=== PATIENT | male | born 1985 | race Caucasian/White ===

== ENCOUNTER 2018-08-28 00:46 | Observation (INO) ==
[2018-08-28] MEDS ORDERED: Isovue-370 500 ML BOTTLE IVP ONE (01:10)
[2018-08-28] MEDS ORDERED: 0.9 % Sodium Chloride 1,000 ML IVC ONE (01:10)
--- NOTE | 2018-08-28 01:15 | Emergency Department Note ---
Disposition Clinical Impression: Tonsillitis, Lymphadenitis, acute, Trismus Cellulitis Qualifiers: Site of cellulitis: neck Qualified Code(s): L03.221 - Cellulitis of neck Disposition: Admitted As Inpatient Condition: Good Referrals: NONE,PCP [Primary Care Provider] - Forms: ED Satisfaction Letter Time of Disposition: 05:06 Dental HPI - General Chief complaint: ED Dental/Oral Stated complaint: infection/abscessed tooth Time Seen by Provider: 08/28/18 00:57 Source: patient Mode of arrival: private vehicle Limitations: no limitations Nursing Notes Reviewed: Yes Vital Signs Reviewed: Yes - History of Present Illness HPI Narrative: 32-year-old male presents emergency department for evaluation of worsening dental infection. Patient states chronic fractures of teeth to the lower right molars, hand pain and then on Friday and Friday and when he woke up on Friday he had a large edematous lymph node under the right mandible, he was seen and was given Pen-Vee K for which he has had 3 doses of. He states today he thinks the lymph node has gotten larger but he also has new redness going down his anterior neck into his chest, he states he generally just does not feel any better. He denies having any fevers, states he went to work today. He st ates he is unable to open his mouth fully due to the pain, he does have a bad taste in his mouth. No choking, drooling. Pt Subjective Complaint: dental pain, facial pain, facial swelling, mouth pain, gingival pain/swelling Onset (ago): day(s) Duration: worsening Improves with: NSAIDs, other (KB mouth closed) Worsens with: chewing, swallowing Context: history of dental caries Associated symptoms: Reports: gum swelling, pain with swallowing Treatment prior to arrival: other - Related Data Home Medications Medication Instructions Recorded Confirmed Omeprazole [PriLOSEC] 20 mg PO DAILY 08/28/18 08/28/18 Allergies Allergy/AdvReac Type Severity Reaction Status Date / Time No Known Allergies Allergy Verified 11/22/14 03:41 All systems ED: reviewed and negative except as stated. Review of Systems: As Per HPI Past Medical History - Past Medical History Attestation: Yes The following information was validated with the patient. Source: patient Medical history: Reports: no medical history Surgical history: Reports: no surgical history Psychiatric history: Reports: no psych history - Social History Smoking Status: Current every day smoker Smokeless Tobacco Status: No Alcohol use: Reports: rarely Drug use: Reports: none Physical Exam - General Limitations: no limitations General appearance: alert, in no apparent distress - Head Head exam: atraumatic, normocephalic, normal inspection - Eye Eye exam: Present: normal appearance - Expanded ENT Exam Mouth exam: Present: trismus, tongue normal. Absent: drooling, lip swelling, tongue elevation, tounge swelling, laceration Teeth exam: Present: fractured tooth #, gingival swelling 1 - Fractured, Other (Noted with what appears to be purulent drainage) Throat exam: Present: normal inspection. Absent: tonsillar erythema, tonsillomegaly, tonsillar exudate, R peritonsillar mass, L peritonsillar mass - Neck Neck exam: Present: normal inspection, full ROM, trachea midline, other (right mandibular gland vs lymph, tender to touch-erythema to anterior neck, blanches wiht touch) - Chest Chest inspection: Present: normal inspection, symmetric chest wall rise, other (erythema to inferior center chest) - Neurological Exam Neurological exam: Present: alert, oriented X3 - Psychiatric Psychiatric exam: Present: normal affect, normal mood - Skin Skin exam: Present: warm, dry, intact, normal color Course Course Narrative: Well-developed male in no acute distress. Respirations are easy and even, voice is steady and strong. Physical examination reveals firm swelling to the right side of the mandibular area, question lymph node versus mandibular gland, tender with touch. There is erythema to the anterior neck and inferior chest, blanches with touch, warm, does appear to extend from the edema to the right side of the neck. Positive trismus Right jaw noted with 3 fractured teeth, there is white drainage, buccal membrane edema, and gingival edema. Oropharynx within normal limits, no evidence of [place]. No other lymphadenopathy. - Reevaluation(s) Reevaluation #1: Labs returned relatively unremarkable, white count elevated slightly at 12.8, initial metabolic panel reveals hypokalemia and hypocalcemia, this is a normal healthy 32-year-old male's labs were repeated which returned normal. CT of the neck reveals bilateral enlarged tonsils without abscess which is consistent with tonsillitis as well as a right submental/anterior triangle lymphadenopathy, noted with cellulitis to the anterior neck. Per CT there is no evidence of a dental abscess I do feel patient would benefit from admission to the hospital for IV antibiotics as he is had 3 doses of penicillin, new onset cellulitis as well as trismus. Patient is reluctantly agreeable to this plan of care. 0320-I did speak with Dr. Toscano with ENT, she is agreeable to consult and see patient in the morning with hospitalist admission. She does state that should patient at any point developed a dental abscess he would need to be seen by an oral surgeon. Patient without any evidence of a dental abscess, he does have fractured teeth and there is edema but there is no abscess. We have paged for the hospitalist at this time. Patient would rather stay here to receive IV antibiotics and given patient's presentation, labs, CT I feel this is reasonable as patient is very stable and without evidence of need for an oral surgeon impatiently at this time. Attending, Dr. Lau has had one on face time with patient is agreeable to plan of care. Time: 03:40 Reevaluation #2: Spoke with hospitalist Dr. Gonsales, agreeable for admission to the inpatient unit. Patient continues to be agreeable. We will transition to inpatient unit at this time. Time: 05:06 Vital Signs Temperature 97.9 F 08/28/18 00:47 Pulse Rate 94 08/28/18 00:47 Respiratory Rate 18 08/28/18 00:47 Blood Pressure 159/105 08/28/18 00:47 O2 Sat by Pulse Oximetry 99 08/28/18 00:47 Temperature 97.9 F 08/28/18 00:47 Pulse Rate 76 08/28/18 04:31 Respiratory Rate 15 08/28/18 04:31 Blood Pressure 147/97 08/28/18 04:31 O2 Sat by Pulse Oximetry 97 08/28/18 04:31 Oxygen Delivery Oxygen Delivery Room Air Dental/Oral - Lab Data Result diagrams: 08/28/18 01:30 08/28/18 02:19 Lab Results 08/28/18 08/28/18 08/28/18 Range/Units 01:30 01:30 02:19 WBC 12.8 H (4.3-11.1) K/mcL RBC 4.59 (4.19-5.50) M/mcL Hgb 14.4 (12.9-16.9) g/dL Hct 41.8 (37.5-50.1) % MCV 91.1 (83.0-100.0) fL MCH 31.4 (28.0-33.3) pg MCHC 34.4 (31.6-35.5) g/dL RDW 12.5 (11.5-14.5) % Plt Count 215 (140-400) K/mcL MPV 9.5 (9.4-12.4) fL Immature Gran % 0.4 (0-4) % Seg Neutrophils % 69.2 % Lymphocytes % 20.3 % Monocytes % 8.5 % Eosinophils % 1.1 % Basophils % 0.5 % Neutrophils # 8.9 (1.6-8.9) K/mcL Lymphocytes # 2.6 (0.6-4.6) K/mcL Monocytes # 1.1 (0.0-1.3) K/mcL Eosinophils # 0.1 (0.0-0.6) K/mcL Basophils # 0.1 (0.0-0.2) K/mcL Sodium 140 (136-145) mEq/L Potassium 2.6 L 3.9 D (3.5-5.1) mEq/L Chloride 115 H (98-107) mEq/L Carbon Dioxide 20 L (23-29) mEq/L BUN 5 L (6-20) mg/dL Creatinine 0.64 L (0.70-1.30) mg/dL Est GFR ( Amer) > 60 (> 60) Est GFR (Non-Af Amer) > 60 (> 60) BUN/Creatinine Ratio 8 (6-26) Glucose 70 (70-105) mg/dL Calculated Osmolality 286 (280-300) Calcium 6.4 L 8.6 (8.6-10.3) mg/dL
[2018-08-28 01:46] LABS: Basophils # 0.1 K/mcL (0.0-0.2); Basophils % 0.5 %; Eosinophils # 0.1 K/mcL (0.0-0.6); Eosinophils % 1.1 %; Hematocrit 41.8 % (37.5-50.1); Hemoglobin 14.4 g/dL (12.9-16.9); Immature Granulocytes % 0.4 % (0-4); Lymphocytes # 2.6 K/mcL (0.6-4.6); Lymphocytes % 20.3 %; Mean Corpuscular HGB Conc 34.4 g/dL (31.6-35.5); Mean Corpuscular Hemoglobin 31.4 pg (28.0-33.3); Mean Corpuscular Volume 91.1 fL (83.0-100.0); Mean Platelet Volume 9.5 fL (9.4-12.4); Monocytes # 1.1 K/mcL (0.0-1.3); Monocytes % 8.5 %; Neutrophils # 8.9 K/mcL (1.6-8.9); Platelet Count 215 K/mcL (140-400); Red Blood Count 4.59 M/mcL (4.19-5.50); Red Cell Distribution Width 12.5 % (11.5-14.5); Segmented Neutrophils % 69.2 %; White Blood Count 12.8 K/mcL (4.3-11.1)
[2018-08-28 02:01] LABS: BUN/Creatinine Ratio 8 (6-26); Blood Urea Nitrogen 5 mg/dL (6-20); Calcium 6.4 mg/dL (8.6-10.3); Carbon Dioxide 20 mEq/L (23-29); Chloride 115 mEq/L (98-107); Glucose 70 mg/dL (70-105); Osmolality,Calculated 286 (280-300); Potassium 2.6 mEq/L (3.5-5.1); Sodium 140 mEq/L (136-145); eGFR For African Americans > 60 (> 60); eGFR For Non-African Americans > 60 (> 60)
[2018-08-28 02:52] LABS: Calcium 8.6 mg/dL (8.6-10.3); Potassium 3.9 mEq/L (3.5-5.1)
[2018-08-28] MEDS ORDERED: Clindamycin 600 MG/50 ML 600 MG/50 ML IV.SOLN IVPB ONE (03:30)
--- NOTE | 2018-08-28 03:35 | Emergency Department Note ---
Disposition Clinical Impression: Tonsillitis, Lymphadenitis, acute, Trismus Cellulitis Qualifiers: Site of cellulitis: neck Qualified Code(s): L03.221 - Cellulitis of neck Disposition: Admitted As Inpatient Condition: Good Time of Disposition: 05:06 General Adult HPI - General Chief complaint: ED Dental/Oral Stated complaint: infection/abscessed tooth Time Seen by Provider: 08/28/18 00:57 Source: patient Mode of arrival: private vehicle Limitations: no limitations Nursing Notes Reviewed: Yes Vital Signs Reviewed: Yes - History of Present Illness Pain Scale: 10 - Related Data Home Medications Medication Instructions Recorded Confirmed Omeprazole [PriLOSEC] 20 mg PO DAILY 08/28/18 08/28/18 Allergies Allergy/AdvReac Type Severity Reaction Status Date / Time No Known Allergies Allergy Verified 11/22/14 03:41 Past Medical History - Past Medical History Medical history: Reports: no medical history Surgical history: Reports: no surgical history Psychiatric history: Reports: no psych history - Social History Smoking Status: Current every day smoker Smokeless Tobacco Status: No Alcohol use: Reports: rarely Drug use: Reports: none Physical Exam - General Limitations: no limitations General appearance: alert, in no apparent distress Course Vital Signs Temperature 97.9 F 08/28/18 00:47 Pulse Rate 94 08/28/18 00:47 Respiratory Rate 18 08/28/18 00:47 Blood Pressure 159/105 08/28/18 00:47 O2 Sat by Pulse Oximetry 99 08/28/18 00:47 Temperature 97.9 F 08/28/18 00:47 Pulse Rate 76 08/28/18 04:31 Respiratory Rate 15 08/28/18 04:31 Blood Pressure 147/97 08/28/18 04:31 O2 Sat by Pulse Oximetry 97 08/28/18 04:31 Oxygen Delivery Oxygen Delivery Room Air Medical Decision Making - Lab Data Lab results reviewed: Yes I reviewed the patient's lab results. Result diagrams: 08/28/18 01:30 08/28/18 02:19 Lab Results 08/28/18 08/28/18 08/28/18 Range/Units 01:30 01:30 02:19 WBC 12.8 H (4.3-11.1) K/mcL RBC 4.59 (4.19-5.50) M/mcL Hgb 14.4 (12.9-16.9) g/dL Hct 41.8 (37.5-50.1) % MCV 91.1 (83.0-100.0) fL MCH 31.4 (28.0-33.3) pg MCHC 34.4 (31.6-35.5) g/dL RDW 12.5 (11.5-14.5) % Plt Count 215 (140-400) K/mcL MPV 9.5 (9.4-12.4) fL Immature Gran % 0.4 (0-4) % Seg Neutrophils % 69.2 % Lymphocytes % 20.3 % Monocytes % 8.5 % Eosinophils % 1.1 % Basophils % 0.5 % Neutrophils # 8.9 (1.6-8.9) K/mcL Lymphocytes # 2.6 (0.6-4.6) K/mcL Monocytes # 1.1 (0.0-1.3) K/mcL Eosinophils # 0.1 (0.0-0.6) K/mcL Basophils # 0.1 (0.0-0.2) K/mcL Sodium 140 (136-145) mEq/L Potassium 2.6 L 3.9 D (3.5-5.1) mEq/L Chloride 115 H (98-107) mEq/L Carbon Dioxide 20 L (23-29) mEq/L BUN 5 L (6-20) mg/dL Creatinine 0.64 L (0.70-1.30) mg/dL Est GFR ( Amer) > 60 (> 60) Est GFR (Non-Af Amer) > 60 (> 60) BUN/Creatinine Ratio 8 (6-26) Glucose 70 (70-105) mg/dL Calculated Osmolality 286 (280-300) Calcium 6.4 L 8.6 (8.6-10.3) mg/dL - Radiology Data Radiology results reviewed: Yes I reviewed the patient's radiology results. Soft Tissue Neck CT 08/28/18 01:10 IMPRESSION: 1. Bilaterally enlarged heterogeneous lingual tonsils with soft tissue affect and blunting of the vallecula without organized abscess formation. Findings are compatible with tonsillitis. 2. Right submental and anterior triangle lymphadenopathy. 3. Soft tissue edema ventral to the hyoid bone and the mandible. D/ / Arelis Dobson MD / Arelis Dobson MD Interpreting Provider: Arelis Dobson MD Critical Care Time Critical Care Time: No Attestation Statement - Attestation Attestation: I, Kaushal Lau MD, personally evaluated this patient and discussed their management with the midlevel provicer, PAC/MARINE UNDERWRITER. I reviewed the midlevel provider's note and agree with the documented findings, medical decision making, and plan of care. 32-year-old male presented to the emergency department with a complaint of right jaw pain and swelling for the past several days. Worse over the past 2 days. He was seen somewhere and started on Pen-Vee K for a dental infection. Today the pain and swelling became worse and he developed redness standing across the anterior throat area and down onto the upper chest wall. The area is warm to touch. He has not had any definite fever. He also has developed trismus and difficulty opening his mouth. No difficulty swallowing or breathing. On examination patient is a well-developed well-nourished male in no acute distress. He is alert and oriented 3. There is no cyanosis or diaphoresis. There is firm and indurated swelling over the right mandible and submandibular region with no palpable fluctuance. Patient has trismus and is only able to open his teeth about 1.5 cm. There is erythema and warmth to touch of the skin over the anterior and right side of the neck and throat area extending down onto the mid upper anterior chest wall. Breath sounds are clear and equal bilaterally. Heart regular rate and rhythm. Labs reviewed. Mild leukocytosis. CT shows soft tissue swelling and lymphadenopathy with no abscess. Also consistent with tonsillitis. The hospitalist, Dr. Gonsales, was consulted and accepted admission of the patient.
[2018-08-28] MEDS ORDERED: Ketorolac 15 MG/ML VIAL IVP ONE (04:17)
[2018-08-28] MEDS ORDERED: Acetaminophen 325 MG TABLET PO PRN (05:00)
[2018-08-28] MEDS ORDERED: Ketorolac 30 MG/ML VIAL IVP PRN (05:00)
[2018-08-28] MEDS ORDERED: Naloxone 0.4 MG/ML INJ IVP PRN (05:00)
--- NOTE | 2018-08-28 05:32 | Internal Med History&Physical ---
Date of Encounter: 08/28/18 Time of Encounter: 05:22 Internal Medicine - H&P: HPI Chief complaint: neck pain Admitted From: Home History of present illness: Steven Lorenzo is a 32-year-old man presents with a complaint of right submandibular pain. He says that 4 days ago he developed pain in his right inner ear which radiated down his jaw and into his right upper neck area. He has progressively developed swelling since then with difficulty and pain with swallowing. He admits to having poor dentition with fractured teeth on the same right side. He went to an urgent care center where he was given oral penicillin V but has noted minimal response with this and today woke up with redness going down his neck and more expansion of the swelling. The ER he was found to have a mild leukocytosis of 12 but was afebrile. Physical exam was notable for trismus. CT scan done showed: 1. Bilaterally enlarged heterogeneous lingual tonsils with soft tissue affect and blunting of the vallecula without organized abscess formation. Findings are compatible with tonsillitis. 2. Right submental and anterior triangle lymphadenopathy. 3. Soft tissue edema ventral to the hyoid bone and the mandible. He was given 1 dose of clindamycin and ENT was consulted for evaluation given the progression of his infectious process. He is admitted for further care. Vitals: Reviewed General: Well-developed white man lying comfortably in bed in no acute distress. Skin: Warm and dry. HEENT: Moist mucous membranes. No conjunctivae pallor. Right gingival edema noted with fractured premolars and caries present. Unable to open mouth fully. Neck: Large palpable right submandibular and preauricular LN presents, erythema overlying the right lower neck. Chest: Normal thoracic expansion. Normal breath sounds. Clear to auscultation. Heart: Normal S1 & S2; rhythmic. No rubs or murmurs. Abdomen: Non-distended, soft and non-tender to palpation. No peritoneal reaction. Extremities: No clubbing, cyanosis or edema. No calf tenderness. Normal distal pulses. Neurological: Awake, alert and oriented to person, place and time. No focal deficits. Psych: Affect appropriate. Assessment/Plan 1. Acute tonsillitis: Complicated with surrounding soft tissue swelling and notable edema concerning for progression to an abscess formation and extension into the deeper tissues as noted clinically and radiologically. Inadequate oral therapy given as an outpatient. Will draw a serum lactate and peripheral blood cultures. Start ampicillin/sulbactam 3grs q6hrs. ENT consultation requested. He will need to follow with [facility] as an outpatient for his dental care as some extractions might be necessary. Analgesics as needed. Clear liquid diet for now and advance as tolerated. 2. GERD: On omeprazole prn. 3. Tobacco use: Smoking cessation advised. 4. DVT prophylaxis: Ordered. Past Med Surg Social Fam HX - Past Medical History Medical history: no medical history Psychiatric history: no psych history - Past Surgical History Surgical History: no surgical history - Social History Smoking Status: Current every day smoker Smokeless Tobacco Status: No Alcohol use: rarely Drug use: none Internal Medicine - H&P: Meds Omeprazole [PriLOSEC] 20 mg PO DAILY 08/28/18 [History] Allergy/AdvReac Type Severity Reaction Status Date / Time No Known Allergies Allergy Verified 11/22/14 03:41 All Systems PM: A 10-system review of systems was performed and is negative for pertinent findings except as documented above in the HPI. Family history reviewed and found non-contributory. - Constitutional Vitals: Temp Pulse Resp BP Pulse Ox 97.9 F 76 15 147/97 97 08/28/18 00:47 08/28/18 04:31 08/28/18 04:31 08/28/18 04:31 08/28/18 04:31 Exam: . Internal Med - H&P Results - Labs CBC & Chem 7: 08/28/18 01:30 08/28/18 02:19 Labs: Short CBC 08/28/18 Range/Units 01:30 WBC 12.8 H (4.3-11.1) K/mcL Hgb 14.4 (12.9-16.9) g/dL Hct 41.8 (37.5-50.1) % Plt Count 215 (140-400) K/mcL Neutrophils # 8.9 (1.6-8.9) K/mcL BMP 08/28/18 08/28/18 01:30 02:19 Sodium 140 Potassium 2.6 L 3.9 D Chloride 115 H Carbon Dioxide 20 L BUN 5 L Creatinine 0.64 L Glucose 70 Calcium 6.4 L 8.6 - Impressions ITS Impressions Soft Tissue Neck CT 08/28/18 01:10 IMPRESSION: 1. Bilaterally enlarged heterogeneous lingual tonsils with soft tissue affect and blunting of the vallecula without organized abscess formation. Findings are compatible with tonsillitis. 2. Right submental and anterior triangle lymphadenopathy. 3. Soft tissue edema ventral to the hyoid bone and the mandible. D/ / Arelis Dobson MD / Arelis Dobson MD Interpreting Provider: Arelis Dobson MD - Time Spent With Patient Total time spent is greater than 50% in coordination of care (as documented) at patient's floor/unit and/or counseling patient: Greater than 35 minutes
[2018-08-28] MEDS: Ampicillin/Sulbactam 3,000 MG in 0.9 % Sodium Chloride Mini Bag 100 ML IVPB SCH ×4 (07:55→23:55)
[2018-08-28] MEDS: Ringers Solution, Lactated 1,000 ML IVC SCH ×2 (07:55→17:31)
--- NOTE | 2018-08-28 08:04 | Event Note ---
Date of Encounter: 08/28/18 Time of Encounter: 08:[address] scan report and am awaiting IT support to allow me to view the images. Cellulitis is most likely otontogenic in origin and therefore will require oral surgery to ultimately address his infection. I recommend patient contact an oral surgeon now that is within his insurance network so that once he is able to swallow and his cellulitis is improved he can have the tooth addressed.
--- NOTE | 2018-08-28 08:58 | Event Note ---
Date of Encounter: 08/28/18 Time of Encounter: 08:55 Patient was admitted to earlier this morning for possible tonsil infection, he has low-grade fever 99.2, WBC was elevated. He still has painful swallowing. Significant right facial and the jaw swelling with neck lymphadenopathy. CT scan of the neck revealed1. Bilaterally enlarged heterogeneous lingual tonsils with soft tissue affect and blunting of the vallecula without organized abscess formation. Findings are compatible with tonsillitis. Right submental and anter ior triangle lymphadenopathy. continue IV unaysn, pending ENT consult follow up lab Am
[2018-08-28] MEDS: OXYCODONE Oral CONC 10 MG/0.5 ML ORAL.SYG SL PRN ×2 (11:29→19:29)
--- NOTE | 2018-08-28 13:09 | ENT - Consult Note ---
Date of Encounter: 08/28/18 Time of Encounter: 13:07 Assessment and Plan (1) Lymphadenitis, acute Current Visit: Yes Status: Acute 32 yo male w/ lympadenitis and cellulitis 2/2 periapical abscesses of the R mandibular molars. I advised patient to call an oral surgeon today so he can get in ABI next week. Continue IV abx and encourage patient to drink and stay hydrated. Will continue to follow. Code(s): L04.9 - Acute lymphadenitis, unspecified SNOMED Code(s): 68065207 (2) Cellulitis Current Visit: Yes Status: Acute Qualifiers: Site of cellulitis: neck Qualified Code(s): L03.221 - Cellulitis of neck Code(s): L03.90 - Cellulitis, unspecified SNOMED Code(s): 175497264 History of Present Illness Consult date: 08/28/18 Reason for ENT Consult: other History of present illness: 32 yo male w/ h/o several days of right jaw pain that only worsened over time. Came in last night with odynophagia and decreased PO intake. CT scan shows significant R sided LAD and cellulitis and multiple periapical abscesses of the right molars. Patient has had improvement in pain and swelling. Has not tried to eat or drink anything today. Denies voice changes or throat pain. Endorse trismus. Otherwise 10 system ROS is negative. Past Med Surg Social Fam HX - Past Medical History Medical history: no medical history Psychiatric history: no psych history - Past Surgical History Surgical History: no surgical history - Social History Smoking Status: Current every day smoker Packs per day: 1 Smokeless Tobacco Status: No Alcohol use: rarely Drug use: none Medications and Allergies Omeprazole [PriLOSEC] 20 mg PO DAILY 08/28/18 [History] Allergy/AdvReac Type Severity Reaction Status Date / Time No Known Allergies Allergy Verified 11/22/14 03:41 ENT Exam Initial Vital Signs Temp Pulse Resp BP Pulse Ox 97.9 F 94 18 159/105 99 08/28/18 00:47 08/28/18 00:47 08/28/18 00:47 08/28/18 00:47 08/28/18 00:47 - Additional Findings General: reviewed vital signs. Patient appears well is alert and appropriately answers questions Head: Normocephalic, atraumatic. No sinus tenderness to palpation Ears: normal auricles bilaterally. EAC clear on the left. EAC clear on the right. TM on the left is pearly with good landmarks, no retractions, and mobile to autoinsufflation. TM on the right is pearly with good landmarks, no retractions, and mobile to insufflation. Hearing intact to quiet voice. Nose: external nose without major deformity. Nasal septum is midline. Nasal turbinates with mild edema bilaterally. Mucosa is moist and pink, no rhinorrhea Oral cavity: lips without lesions. hard palate normal, mucous membranes are moist. Teeth with multiple diseased teeth in the mandible with royce pus from the R tooth 31/32 area. Gums surrounding this are edematous and inflamed. Floor of mouth is soft. Kulwinder's and Jaron's ducts are normal bilaterally. Oropharynx: uvula is midline. Tonsils are 2+ and symmetric. Posterior pharyngeal wall is unremarkable. Neck: no overlying skin changes. Midline trachea, no crepitus. Thyroid is small and symmetric. There is no lymphadenopathy on the right. Parotid and submandibular glands are soft on the right. L with rock hard SMG and R level I LAD with rubor but no erythema. Soft level II-V. Cranial Nerves: Cyr midline. AC>BC BL. CN II-XII intact and symmetric. Mood and affect are appropriate. CV: carotid pulses are symmetric and normal in the neck. No JVD, good BL UE distal pulses. Pulm: normal chest expansion, normal respiratory effort. No peripheral cyanosis. Exam Initial Vital Signs Temp Pulse Resp BP Pulse Ox 97.9 F 94 18 159/105 99 08/28/18 00:47 08/28/18 00:47 08/28/18 00:47 08/28/18 00:47 08/28/18 00:47 Results - Labs 08/28/18 01:30 08/28/18 02:19 Abnormal lab results WBC 12.8 K/mcL (4.3-11.1) H 08/28/18 01:30 Potassium 2.6 mEq/L (3.5-5.1) L 08/28/18 01:30 Chloride 115 mEq/L (98-107) H 08/28/18 01:30 Carbon Dioxide 20 mEq/L (23-29) L 08/28/18 01:30 BUN 5 mg/dL (6-20) L 08/28/18 01:30 0.64 mg/dL (0.70-1.30) L 08/28/18 01:30 Calcium 6.4 mg/dL (8.6-10.3) L 08/28/18 01:30 Diabetes panel 08/28/18 08/28/18 Range/Units 01:30 02:19 Sodium 140 (136-145) mEq/L Potassium 2.6 L 3.9 D (3.5-5.1) mEq/L Chloride 115 H (98-107) mEq/L Carbon Dioxide 20 L (23-29) mEq/L BUN 5 L (6-20) mg/dL Creatinine 0.64 L (0.70-1.30) mg/dL Glucose 70 (70-105) mg/dL Calcium 6.4 L 8.6 (8.6-10.3) mg/dL Calcium panel 08/28/18 08/28/18 Range/Units 01:30 02:19 Calcium 6.4 L 8.6 (8.6-10.3) mg/dL Pituitary panel 08/28/18 08/28/18 Range/Units 01:30 02:19 Sodium 140 (136-145) mEq/L Potassium 2.6 L 3.9 D (3.5-5.1) mEq/L Chloride 115 H (98-107) mEq/L Carbon Dioxide 20 L (23-29) mEq/L BUN 5 L (6-20) mg/dL Creatinine 0.64 L (0.70-1.30) mg/dL Glucose 70 (70-105) mg/dL Calcium 6.4 L 8.6 (8.6-10.3) mg/dL Adrenal panel 08/28/18 08/28/18 Range/Units 01:30 02:19 Sodium 140 (136-145) mEq/L Potassium 2.6 L 3.9 D (3.5-5.1) mEq/L Chloride 115 H (98-107) mEq/L Carbon Dioxide 20 L (23-29) mEq/L BUN 5 L (6-20) mg/dL Creatinine 0.64 L (0.70-1.30) mg/dL Glucose 70 (70-105) mg/dL Calcium 6.4 L 8.6 (8.6-10.3) mg/dL All other labs normal. Consult Discharge Plan - Plan Referrals: NONE,PCP [Primary Care Provider] -
[2018-08-29 02:42] LABS: Basophils # 0.1 K/mcL (0.0-0.2); Basophils % 0.4 %; Eosinophils # 0.1 K/mcL (0.0-0.6); Eosinophils % 0.5 %; Hematocrit 38.8 % (37.5-50.1); Hemoglobin 13.3 g/dL (12.9-16.9); Immature Granulocytes % 0.6 % (0-4); Lymphocytes # 2.6 K/mcL (0.6-4.6); Lymphocytes % 17.5 %; Mean Corpuscular HGB Conc 34.3 g/dL (31.6-35.5); Mean Corpuscular Hemoglobin 30.7 pg (28.0-33.3); Mean Corpuscular Volume 89.6 fL (83.0-100.0); Mean Platelet Volume 9.7 fL (9.4-12.4); Monocytes # 1.3 K/mcL (0.0-1.3); Monocytes % 8.4 %; Neutrophils # 10.9 K/mcL (1.6-8.9); Platelet Count 225 K/mcL (140-400); Red Blood Count 4.33 M/mcL (4.19-5.50); Red Cell Distribution Width 12.2 % (11.5-14.5); Segmented Neutrophils % 72.6 %
[2018-08-29 02:59] LABS: BUN/Creatinine Ratio 9 (6-26); Blood Urea Nitrogen 8 mg/dL (6-20); Carbon Dioxide 24 mEq/L (23-29); Chloride 104 mEq/L (98-107); Glucose 90 mg/dL (70-105); Magnesium 1.9 mg/dL (1.6-2.6); Osmolality,Calculated 278 (280-300); Potassium 3.7 mEq/L (3.5-5.1); Sodium 135 mEq/L (136-145); eGFR For African Americans > 60 (> 60); eGFR For Non-African Americans > 60 (> 60)
[2018-08-29] MEDS: Ampicillin/Sulbactam 3,000 MG in 0.9 % Sodium Chloride Mini Bag 100 ML IVPB SCH ×3 (06:02→16:50)
[2018-08-29] MEDS: OXYCODONE Oral CONC 10 MG/0.5 ML ORAL.SYG SL PRN (06:03)
[2018-08-29] MEDS ORDERED: Dexamethasone 4 MG/ML VIAL IVP SCH (10:15)
--- NOTE | 2018-08-29 10:17 | Internal Med Progress Note ---
Hospitalist Progress Note - Encounter Date of Encounter: 08/29/18 Time of Encounter: 10:14 - Subjective Interval History: Patient was seen and examined at the bedside. Patient still complaining of painful swallowing with right submandibular swelling and tenderness and erythema. Continue IV antibiotics and started on IV dexamethasone for 2 days There is no fever but still has leukocytosis - Exam Vitals: Temp Pulse Resp BP Pulse Ox 98.9 F 93 18 135/75 95 08/29/18 06:41 08/29/18 06:41 08/29/18 06:41 08/29/18 06:41 08/29/18 06:41 Exam: Physical examination: Gen.: Patient is alert and oriented, not in respiratory distress of pain HEENT: perrla , EOMI, there is a right submandibular swelling with overlying skin erythema tenderness on palpation Heart: S1 and S2 [place], normal sinus rhythm, no cardiac murmur no gallop rhythm Chest: Air entry equal bilaterally, clear chest, no wheezing, crackles or crepitation Abdomen: Soft nontender nondistended positive bowel sounds, no organomegaly Extremities: No pitting edema, peripheral pulses palpable, no cyanosis tenderness Neuro: Able to move all 4 limbs, no focal neurological deficit. - Assessment and Plan (1) Cellulitis Current Visit: Yes Status: Acute Assessment and Plan: Continue on IV antibiotic The patient denied voiced changes Still has painful swallowing Continue on IV fluids and pain medication started on iv steroid (2) Lymphadenitis, acute Current Visit: Yes Status: Acute Assessment and Plan: Continue on IV antibiotic on inquiry the patient to drink and stay hydrated did order IV dexamethasone 4 mg every 8 hours for 3 days to decrease inflammation as the patient is complaining of painful swallowing follow Blood culture ENT on board appreciated Patient has lymphadenitis and cellulitis secondary to periapical abscess of the right mandibular molar, patient needs oral surgeon follow-up DVT Prophylaxis: Lovenox - Time Spent with Patient Total time spent is greater than 50% in coordination of care (as documented) at patient's floor/unit and/or counseling patient: Plan of Care Discussed with: patient Internal Medicine: Result - Labs CBC & Chem 7: 08/29/18 02:19 08/29/18 02:19 Labs: Short CBC 08/29/18 Range/Units 02:19 WBC 15.0 H (4.3-11.1) K/mcL Hgb 13.3 (12.9-16.9) g/dL Hct 38.8 (37.5-50.1) % Plt Count 225 (140-400) K/mcL Neutrophils # 10.9 H (1.6-8.9) K/mcL BMP 08/29/18 02:19 Sodium 135 L Potassium 3.7 Chloride 104 Carbon Dioxide 24 BUN 8 Creatinine 0.90 Glucose 90 Calcium 9.0 Consult Discharge Plan - Plan Referrals: NONE,PCP [Primary Care Provider] - (1) Cellulitis Qualifiers: Site of cellulitis: neck Qualified Code(s): L03.221 - Cellulitis of neck
[2018-08-29 11:01] VITALS: BP 143/86
--- NOTE | 2018-08-29 11:56 | ENT - Progress Note ---
Date of Encounter: 08/29/18 Time of Encounter: 11:56 - Assessment and Plan (1) Lymphadenitis, acute Current Visit: Yes Status: Acute Worsening clinical exam today with low grade temp and increasing WBC concerning for transformation of lymphadenitis to abscess. I discussed with patient and my concerns. While I can perform an I&D in the neck unfortunately this would lead to chronic draining wound site until the periapical abscesses are addressed. My recommendation is to transfer to a facility that has both ENT and oral surgery capabilities so these can both be addressed concurrently. I have initiated the transfer process to [facility]. They plan to transfer him to the hospitalist service once a bed becomes available. Until then, I have requested the nurse to obtain his CT scan on a CD. I would continue IV steroids and antibiotics. May consider broadening coverage for MRSA and gram negative bacteria. Code(s): L04.9 - Acute lymphadenitis, unspecified SNOMED Code(s): 73937250 (2) Cellulitis Current Visit: Yes Status: Acute Qualifiers: Site of cellulitis: neck Qualified Code(s): L03.221 - Cellulitis of neck Code(s): L03.90 - Cellulitis, unspecified SNOMED Code(s): 199742819 Subjective Patient reports: no new complaints (HD#2 for multiple periapical abscesses of left mandibular teeth resulting in cellulitis and lymphadenitis. No acute events overnight. Tmax 99.6. Patient still complains of odynophagia and neck pain, not worsened but not improved. He did not try to call an oral surgeon yesterday and his was not aware that we had recommended he get in touch with one.) Objective Initial Vital Signs Temp Pulse Resp BP Pulse Ox 97.9 F 94 18 159/105 99 08/28/18 00:47 08/28/18 00:47 08/28/18 00:47 08/28/18 00:47 08/28/18 00:47 - General physical appearance well developed, well nourished, no distress, moderate pain - ENT Other (Trismus with 2 cm opening. Same purulence in right mandibular molar area 31-32 with worsened heaping up of the overlying and surrounding mucosa/gingiva. Tonsils 2+, non erythematous. Uvula midline. Tongue/FOM is soft.) - Neck other (There is coalescence of the right level I and SMG/level IIa LAD and worsening erythema and now there is mild pitting edema. TTP is unchanged.) Neck Exam: lymphadenopathy: right - Integumentary other (erythema, rubor, and pitting edema of the right level I/II area. ) - Neurologic CN 2-12 grossly intact - Labs 08/29/18 02:19 08/29/18 02:19 Diabetes panel 08/29/18 Range/Units 02:19 Sodium 135 L (136-145) mEq/L Potassium 3.7 (3.5-5.1) mEq/L Chloride 104 (98-107) mEq/L Carbon Dioxide 24 (23-29) mEq/L BUN 8 (6-20) mg/dL Creatinine 0.90 (0.70-1.30) mg/dL Glucose 90 (70-105) mg/dL Calcium 9.0 (8.6-10.3) mg/dL Calcium panel 08/29/18 Range/Units 02:19 Calcium 9.0 (8.6-10.3) mg/dL Pituitary panel 08/29/18 Range/Units 02:19 Sodium 135 L (136-145) mEq/L Potassium 3.7 (3.5-5.1) mEq/L Chloride 104 (98-107) mEq/L Carbon Dioxide 24 (23-29) mEq/L BUN 8 (6-20) mg/dL Creatinine 0.90 (0.70-1.30) mg/dL Glucose 90 (70-105) mg/dL Calcium 9.0 (8.6-10.3) mg/dL Adrenal panel 08/29/18 Range/Units 02:19 Sodium 135 L (136-145) mEq/L Potassium 3.7 (3.5-5.1) mEq/L Chloride 104 (98-107) mEq/L Carbon Dioxide 24 (23-29) mEq/L BUN 8 (6-20) mg/dL Creatinine 0.90 (0.70-1.30) mg/dL Glucose 90 (70-105) mg/dL Calcium 9.0 (8.6-10.3) mg/dL Consult Discharge Plan - Plan Referrals: NONE,PCP [Primary Care Provider] -
--- NOTE | 2018-08-29 13:12 | Discharge Summary ---
Orders not resulted at time of discharge: Pending orders 08/28/18 06:03 Culture,Blood [BC] Stat 08/30/18 04:00 Complete Blood Count w/o Diff [HEME] AM 0400 Comprehensive Metabolic Panel AM 0400 Magnesium AM 0400 Phosphorous AM 0400 08/31/18 04:00 Complete Blood Count w/o Diff [HEME] AM 0400 Comprehensive Metabolic Panel AM 0400 Magnesium AM 0400 Phosphorous AM 0400 Date of Encounter: 08/29/18 Time of Encounter: 13:08 - Discharge Diagnosis (1) Cellulitis Priority: Primary Status: Acute Assessment and Plan: Continue on IV antibiotic The patient denied voiced changes Still has painful swallowing Continue on IV fluids and pain medication started on iv steroid Qualifiers: Site of cellulitis: neck Qualified Code(s): L03.221 - Cellulitis of neck (2) Lymphadenitis, acute Priority: Primary Status: Acute Assessment and Plan: Continue on IV antibiotic ( unisyn and vancomycin ) did order IV dexamethasone 4 mg every 8 hours for 3 days to decrease inflammation as the patient is complaining of painful swallowing follow Blood culture ENT on board appreciated, recommend transfer to [facility] for oral surgery intervention Patient has lymphadenitis and cellulitis secondary to periapical abscess of the right mandibular molar, patient needs oral surgeon follow-up Hospital course: Mr. Lorenzo is a 32 year old male who was admitted because of the right submandibular swelling and ultrasound to have lymphadenitis of the right submandibular region with cellulitis, initially started on IV Unasyn with IV steroids, ENT was consulted to recommend to transfer the patient to [facility] for oral surgical intervention, because of the worsening clinical examination today with low-grade temperature and increasing leukocytosis concerning for possible transformation of lymphadenitis to abscess, I also discussed with Dr. Love add iv vancomyc to cover for possible MRSA infection - Time Spent with Patient Total time spent providing and/or coordinating discharge services: 35 min - Discharge Medications Prescriptions: No Action Omeprazole [PriLOSEC] 20 mg PO DAILY PRN PRN Reason: GERD Penicillin VK [Pencillin VK] 500 mg PO BID Home Medications: Omeprazole [PriLOSEC] 20 mg PO DAILY PRN 08/28/18 [History] Penicillin VK [Pencillin VK] 500 mg PO BID 08/28/18 [History] Allergies/Adverse Reactions: Allergy/AdvReac Type Severity Reaction Status Date / Time No Known Allergies Allergy Verified 08/28/18 19:56 Date of admission: 08/28/18 05:07 Primary care physician: PCP NONE Consults: 08/28/18 05:04 Consult to ENT [CONS] Stat Consulting Provider: ENT [employer] Reason for Consult: Tonsillitis, lymphadenitis, cellulitis of neck Time Notified: 03:20 Call Completed: Yes - Constitutional Vitals: Temp Pulse Resp BP Pulse Ox 99.5 F 86 16 143/86 97 08/29/18 10:56 08/29/18 10:56 08/29/18 10:56 08/29/18 10:56 08/29/18 10:56 P Exam: Physical examination: Gen.: Patient is alert and oriented, not in respiratory distress of pain HEENT: perrla , EOMI, there is a right submandibular swelling with overlying skin erythema tenderness on palpation Heart: S1 and S2 [place], normal sinus rhythm, no cardiac murmur no gallop rhythm Chest: Air entry equal bilaterally, clear chest, no wheezing, crackles or crepitation Abdomen: Soft nontender nondistended positive bowel sounds, no organomegaly Extremities: No pitting edema, peripheral pulses palpable, no cyanosis tenderness Neuro: Able to move all 4 limbs, no focal neurological deficit. - Patient Status Disposition: Admitted As Inpatient Condition: Fair - Discharge Instructions Follow Up With: NONE,PCP [Primary Care Provider] - - Diet and Activity Diet: other (liquid diet )
[2018-08-29] MEDS ORDERED: Vancomycin (wt based) 1,000 MG VIAL IVPB SCH (14:00)
[2018-08-29] MEDS ORDERED: Aminoglycoside Consult 1 EACH MC ONE (18:39)
[2018-08-30] MEDS ORDERED: *HR* Enoxaparin 40 MG/0.4 ML SYRINGE SQ SCH (06:00)
== END 2018-08-29 18:40 | disposition other institution (70) ==
LOC: 2ANU 00:46 → EMEROOARM 00:46 → 2ANU 05:24
PROVIDERS: ADMIT Internal Medicine; ATTEND Internal Medicine